=== PATIENT | male | born 1970 | race Caucasian/White ===

== ENCOUNTER 2018-09-20 12:53 | Emergency (ER) | payer OTHER, SELFPAY ==
[2018-09-20] VITALS (20 sets, daily range): BP systolic 110–138; BP diastolic 74–91; PULSE 58–84; RESP 13–23; TEMP 36.5; O2SAT 96–100
--- NOTE | 2018-09-20 13:08 | DI.RAD_ITS ---
SYMPTOMS/DIAGNOSIS: RIGHT KNEE PAIN S/P TWIST AND FALL OF SKID STEER; SYNCOPE, MILD CONCERN FOR ACUTE CORONARY SYNDROME RIGHT KNEE: Three views were obtained. No fracture is seen. PA AND LATERAL CHEST: The heart is normal in size. The lungs are clear. The mediastinal structures and pleura appear intact. CONCLUSION: Normal chest.
--- NOTE | 2018-09-20 13:12 | W.ED.GENAD ---
Discharge Plan Disposition Patient Disposition: HOME Condition: Improving Discharge Details Chief Complaint: Dizzy/Sync Clinical Impression: Syncope, Fall, Knee sprain, Creatinine elevation Primary Care Provider: Jr Agrawal ED Provider: Jeff Lamb Home Meds and New Rx's Prescriptions: No Action acetaminophen [Tylenol] 325 MG tablet 650 mg PO PRN RF: 0 lisinopril 20 mg Tablet 20 mg PO DAILY RF: 0 Discharge Instructions Instructions: Fall Prevention (ED), Knee Sprain (ED), Syncope (ED) Additional Instructions: Please follow-up with your primary care doctor this week to repeat electrolytes to check your renal function. Your creatinine which measures your kidney function was elevated today 1.31 is slightly higher than it has been in the past. This can be something chronic or something more benign like dehydration . please increase your clear fluid intake this week and see your doctor for repeat testing Please return to the emergency department immediately for shortness of breath chest pain repeat loss of consciousness or other concern. Please apply ice to your knee and begin working and mobilizing it as pain improves should the pain persist please follow-up with an orthopedic surgeon and your primary care physician. If at anytime the pain becomes excruciating or you can no longer bear weight please return to the emergency department for further evaluation Referrals: Jr Agrawal MD [Primary Care Provider] - Phuc Baker MD [ [facility] STAFF PHYSICIAN] - 1 week Medical Decision Making 48-year-old male status post fall followed by syncope with no evidence of head trauma knee x-ray chest x-ray unremarkable labs including troponin x1 unremarkable EKG x3 one prehospital with some questionable ST elevations versus artifact and 2 normal EKGs in the emergency no chest pain. Diagnosis 1 syncope suspect vasovagal syncope no evidence of cardiac minimal risk factors will discharge with early primary care follow-up and strict return for repeat symptoms of loss of consciousness or new chest pain or shortness of breath. Diagnosis to knee sprain versus strain versus less likely ligamentous tear x-ray and knee negative unable to bear weight provide Coy wrap for support PRN orthopedic follow-up Motrin and Tylenol for pain. Lab Data Lab results reviewed: Yes I reviewed the patient's lab results. Procedures ECG Data Attestation: I personally reviewed and interpreted this ECG (s) as follows: (EKG 1 and 2 sinus rhythm 60-67 normal axis no ectopy normal intervals no ST elevations no ST depressions normal T wave morphology) HPI 48-year-old male presents with right knee pain and loss of consciousness after falling off a skid steer about 3 feet into the bucket. Patient was working to change his lights on top of the deck slipped and twisted his leg between the wheel and the bucket and then fell into the pocket patient was able to extricate himself but then felt weak dizzy and passed out 2-3 times according to coworkers EMS responded noted patient to be pale and diaphoretic and mildly bradycardic in the 50s first EKG had some questionable elevations in leads 2/3/F V5 and V6. No chest pain no shortness of breath in the ED EKG without elevations. Patient complaining of mild to moderate left knee pains sharp ache without radiation pain but full range of motion. General Date/Time Provider Initiated Documentation: 09/20/18 13:01. Related Data Home Medications Medication Instructions Recorded Confirmed acetaminophen [Tylenol] 650 mg PO PRN tab-cap NS 04/23/13 09/20/18 lisinopril 20 mg PO DAILY 09/20/18 09/20/18 Allergies Allergy/AdvReac Type Severity Reaction Status Date / Time No Known Allergies Allergy Unverified 09/20/18 13:04 General Stated Complaint: Dizzy/Sync SHERLY: 2 Review of Systems Review of Systems All systems reviewed & are unremarkable except as noted in HPI and below PFSH Social History Smoking/Tobacco Use Status: Never Alcohol Intake: current Alcohol Intake frequency: a few times a week Substance use type: does not use Do you feel safe at home: Yes Do you feel safe in your relationship?: Yes Exam Narrative Exam Narrative: Pulse oximetry reviewed by me and is normal [] Constitutional: Pt is in no acute distress. he is well appearing. he oriented to person, place, and time. Eyes: conjunctivae are normal. Pupils are equal, round, and reactive to light. No scleral icterus. extraocular muscles are intact Ears/Nose/Mouth/Throat: mucus membranes are moist. Musculoskeletal: neck is supple. normal range of motion in all extremities. Patient's right knee with mild superficial abrasions mild tenderness over the distal patella mild pain over his medial meniscal line no crepitus no large effusion normal popliteal pulses normal distal neurovascular exam Cardiovascular: Normal rate and rhythm. No lower extremity edema regular rate and [] Respiratory: effort is normal . pt exhibits no stridor or respiratory distress. [Lungs clear to auscultation] GastrointestinaI: abdomen soft, +BS, nontender, -rebound, -guarding. Neurological: alert and oriented to person, place, and time. he has normal strength, no tremor. Skin: Skin is warm and dry. he is not diaphoretic. Distal perfusion in tact, warm extremities, cap refill ? 2 seconds. Hem/Lymph/Imm: No cervical LAD, no goiter, no conjunctival pallor Psych: normal mood and affect. behavior is normal Triage and nurse notes reviewed.[] Course Vital Signs Temperature 36.5 C 09/20/18 12:49 Pulse 68 09/20/18 12:49 Respiratory Rate 18 09/20/18 12:49 Blood Pressure 110/81 09/20/18 12:49 Pulse Oximetry 96 09/20/18 12:49 Temperature 36.5 C 09/20/18 12:49 Pulse 68 09/20/18 12:49 Respiratory Rate 18 09/20/18 12:49 Blood Pressure 110/81 09/20/18 12:49 Pulse Oximetry 96 09/20/18 12:49 Pain Level 9 09/20/18 12:49
[2018-09-20 13:45] LABS: Abs Immature Grans 0.03 k/cumm (0.0-0.09); Absolute Basophil Count 0.03 k/cumm (0.0-0.2); Absolute Eosinophil Count 0.08 k/cumm (0.0-0.7); Absolute Lymphocyte Count 3.21 k/cumm (1.2-3.4); Absolute Monocyte Count 0.71 k/cumm (0.11-0.7); Absolute Neutrophil Count 5.81 k/cumm (1.2-6.7); Basophils % 0.3; Eosinophils % 0.8; HCT 47.4 % (40.0-50.0); Immature Grans % 0.3; Lymphocytes % 32.5; Mean Corp. HGB Concentration 33.8 g/dL (32.0-36.0); Mean Corpuscular Hemoglobin 31.9 pg (27.0-33.0); Mean Corpuscular Volume 94.4 fL (80-95); Mean Platelet Volume 10.7 fL (8.0-11.0); Monocytes % 7.2; Neutrophils % 58.9; Platelet Count 315 x1000/uL (130-400); RBC 5.02 m/cumm (4.50-6.00); White Blood Cell Count 9.87 k/cumm (4.4-10.8)
[2018-09-20 14:07] LABS: ALT 64 U/L (12-78); AST 30 U/L (15-37); Albumin 3.9 g/dL (3.4-5.0); Alkaline Phosphatase 45 U/L (46-116); Anion Gap 7.9 mmol/L (3-11); BUN 19 mg/dL (7-18); Bilirubin, Total 0.7 mg/dL (0.2-1.0); CO2 30.1 mmol/L (21.0-32.0); CREATININE 1.31 mg/dL (0.70-1.30); Calcium 8.8 mg/dL (8.5-10.1); Chloride 101 mmol/L (98-107); Estimated GFR 58.16 (mL/min/1.73m2); Glucose 121 mg/dL (70-100); Potassium 3.5 mmol/L (3.5-5.1); Sodium 139 mmol/L (136-145); Total Protein 7.3 g/dL (6.4-8.2)
[2018-09-20 14:09] LABS: Troponin I < 0.02 ng/mL (0.00-0.06)
[2018-09-20] MEDS: Ibuprofen 800 MG TAB (14:24)
[2018-09-20] MEDS: Acetaminophen 500 MG TAB (14:25)
== END 2018-09-20 15:30 | disposition home or self-care (01) ==
PROVIDERS: Emergency Provider Emergency Medicine; PCP Internal Medicine
DX: R55 Syncope and collapse (principal); R94.4 Abnormal results of kidney function studies; S83.91XA Sprain of unspecified site of right knee, initial encounter; W31.9XXA Contact with unspecified machinery, initial encounter; W17.89XA Other fall from one level to another, initial encounter; Y99.0 Civilian activity done for income or pay; R00.1 Bradycardia, unspecified
CPT/HCPCS: 36415; 73562; 80053; 90471; 93005; 99285; 71046; 83735; 84484; 85025; 93010; E0114

== ENCOUNTER 2019-03-07 16:16 | Outpatient (REF) | payer OTHER, SELFPAY ==
[2019-03-07 21:26] LABS: Anion Gap 9.1 mmol/L (3-11); BUN 15 mg/dL (7-18); CO2 27.9 mmol/L (21.0-32.0); CREATININE 1.06 mg/dL (0.70-1.30); Calcium 9.2 mg/dL (8.5-10.1); Calculated LDL 140 mg/dL; Chloride 102 mmol/L (98-107); Cholesterol 223 mg/dL (50-200); Glucose 81 mg/dL (70-100); HDL Cholesterol 41 mg/dL (40-60); Sodium 139 mmol/L (136-145); Triglyceride 214 mg/dL (30-150)
== END 2019-03-07 16:36 ==
LOC: NCHCN 16:16
PROVIDERS: PCP Internal Medicine; Visit Provider Internal Medicine
DX: Z00.00 Encounter for general adult medical examination without abnormal findings (principal); I10 Essential (primary) hypertension; L98.9 Disorder of the skin and subcutaneous tissue, unspecified; E66.9 Obesity, unspecified
CPT/HCPCS: 80048; 80061

== ENCOUNTER 2019-06-06 16:46 | Outpatient (REF) | payer OTHER, SELFPAY ==
--- NOTE | 2019-06-06 15:45 | SKI_PTH ---
PATIENT: Mario Mcneal LOC: [facility]#:[id number] AGE/SX: 49/M ROOM: RE06/06/[address]: Jr Agrawal : 1970 BED: DIS: 06/06/2019 SPEC #: [id number] RECD: 06/09/19 12:11 STATUS: MICHEL TERAN #: [id number] STEFANIE: 06/06/19 15:[address]: Jr Agrawal DEPT: Surgical Specimen RECD BY: Marisa Mcgowan Tissues: 1 - SKIN BIOPSY(SHAVE/PUNCH) Procedures: SKIN LEVEL 4 Comments: [id number]
== END 2019-06-06 17:06 ==
LOC: NCHCN 16:46
PROVIDERS: PCP Internal Medicine; Visit Provider Internal Medicine
DX: D22.5 Melanocytic nevi of trunk (principal); B36.0 Pityriasis versicolor
CPT/HCPCS: 88305

== ENCOUNTER 2020-03-15 19:43 | Outpatient (REF) | payer OTHER, SELFPAY ==
[2020-03-15 22:19] LABS: Anion Gap 8.9 mmol/L (3-11); BUN 13 mg/dL (7-18); CO2 26.1 mmol/L (21.0-32.0); CREATININE 1.16 mg/dL (0.70-1.30); Calcium 8.8 mg/dL (8.5-10.1); Chloride 103 mmol/L (98-107); Glucose 117 mg/dL (74-106); Potassium 4.2 mmol/L (3.5-5.1); Sodium 138 mmol/L (136-145)
== END 2020-03-15 20:03 ==
LOC: NCHCN 19:43
PROVIDERS: PCP Internal Medicine; Visit Provider Internal Medicine
DX: I10 Essential (primary) hypertension (principal)
CPT/HCPCS: 80048

== ENCOUNTER 2021-05-04 09:27 | Outpatient (REF) | payer OTHER, SELFPAY ==
[2021-05-04 17:17] LABS: Anion Gap 5.8 mmol/L (3-11); BUN 15 mg/dL (7-18); CO2 30.2 mmol/L (21.0-32.0); CREATININE 1.1 mg/dL (0.70-1.30); Calcium 9.2 mg/dL (8.5-10.1); Chloride 105 mmol/L (98-107); Glucose 93 mg/dL (74-106); Potassium 4.6 mmol/L (3.5-5.1); Sodium 141 mmol/L (136-145)
[2021-05-06 10:30] LABS: HIV-1/2 Ag & Ab Screen Negative (Negative)
[2021-05-06 10:50] LABS: Hepatitis C Ab w Rflx HCV PCR Negative (Negative)
== END 2021-05-04 09:28 | disposition home or self-care (01) ==
LOC: NCHCN 09:27
PROVIDERS: PCP Internal Medicine; Visit Provider Family Medicine
DX: Z00.00 Encounter for general adult medical examination without abnormal findings (principal); I10 Essential (primary) hypertension; E78.5 Hyperlipidemia, unspecified; E66.9 Obesity, unspecified; Z11.4 Encounter for screening for human immunodeficiency virus [HIV]; Z11.59 Encounter for screening for other viral diseases
CPT/HCPCS: 80048; 86803; 87389

== ENCOUNTER 2021-07-29 21:15 | Outpatient (CLI) | payer OTHER, SELFPAY ==
--- NOTE | 2021-07-29 | DI.RAD_ITS ---
Exam(s) XR KNEE LT 3V AP,LAT,LOU EXAM: XR KNEE LT 3V AP,LAT,LOU CLINICAL HISTORY: LT KNEE PAIN, M25.562 TECHNIQUE: COMPARISON: CR XR knee RT 3V AP,lat,lou from 09/20/2018 FINDINGS: Three views were obtained. Cartilaginous joint spaces appear well maintained. No gross knee joint e ffusion seen on the lateral view. Minimal enthesophytes of the patella noted. No other bony abnorma lity seen. IMPRESSION: Negative examination of the knee. RADIATION DOSE DELIVERED: Total DLP
== END 2021-07-29 21:35 ==
PROVIDERS: PCP Internal Medicine; Visit Provider Family Medicine
DX: M25.562 Pain in left knee (principal)
CPT/HCPCS: 73562

== ENCOUNTER 2021-09-13 01:18 | Outpatient (CLI) | payer OTHER, SELFPAY ==
--- NOTE | 2021-09-13 14:23 | DI.MRI_ITS ---
Exam(s) MR LOWER JOINT LT WO EXAM: MR LOWER JOINT LT WO CLINICAL HISTORY: PAIN,internal derangement, m23.92 TECHNIQUE: Multiplanar multisequence MRI of the knee was performed. COMPARISON: CR XR KNEE LT 3V AP,LAT,LOU from 07/29/2021 FINDINGS: EFFUSION: There is a moderate-sized joint effusion. There is no Velasquez cyst in the medial popliteal f laila. There is some subcutaneous edema anterior to the patellar ligament but no organized fluid leonardo ection. MARROW:There is no evidence of fracture, prominent bone contusion, nor osteochondral defects.. There are no significant osseous lesions. PATELLOFEMORAL COMPARTMENT: The quadriceps tendon is intact. The patellar ligament is intact. There is no significant thinning of the retropatellar cartilage. No evidence of fissure nor signific ant chondral defect. No osteochondral defect at this level.There is no intraosseous signal to sugges t recent patellar dislocation. There are no patellar retinacular tears. CRUCIATE LIGAMENTS: The anterior cruciate ligament is intact.The posterior cruciate ligament is intac t. MEDIAL COMPARTMENT/MEDIAL MENISCUS: There is subtle tearing in the posterior horn of the medial menis cus at the level of the root. Also some oblique tearing in the outer 3rd. No bucket-handle configur ation. There is mild extrusion of the posterior horn. There are no obvious tears of the anterior ho rn. There mild degenerative changes in the cartilage over the medial condyle. No osteochondral defects. No marginal osteophyte off the inner aspect. Sys small lateral marginal osteophyte. MEDIAL COLLATERAL LIGAMENT: Intact. No meniscocapsular separation. LATERAL COMPARTMENT/LATERAL MENISCUS: There is no evidence of lateral meniscal tear.There are no owen dral defects, osteochondral defects, subarticular marrow edema, nor osteophytes evident. ILIOTIBIAL BAND: Intact LATERAL COLLATERAL LIGAMENT COMPLEX: The fibular collateral ligament is intact. The biceps femoris t endon is intact.Popliteus muscle and tendon are intact. IMPRESSION: 1. There are tears of the posterior horn of the medial meniscus, as described above. There is mild e xtrusion but no meniscocapsular separation. No bucket-handle configuration. No flipped meniscal fra gments. No evidence of MCL tear. 2. No tears of the lateral meniscus. 3. Minimal degenerative changes in the medial lateral compartments and no obvious chondromalacia narayan lla. No osteochondral defects. 4. Cruciate and collateral ligaments are intact. 5. There is mild subcutaneous edema anterior to the patellar ligament. No formed fluid collection. No abnormal signal in the patellar and quadriceps tendons. DATA REPOSITORY:
== END 2021-09-13 01:38 ==
PROVIDERS: PCP Internal Medicine; Visit Provider Student in an Organized Health Care Education/Training Program
DX: M25.562 Pain in left knee; M23.8X2 Other internal derangements of left knee; S83.242A Other tear of medial meniscus, current injury, left knee, initial encounter; M25.462 Effusion, left knee
CPT/HCPCS: 73721

== ENCOUNTER 2021-09-19 14:51 | Outpatient (CLI) | payer OTHER, SELFPAY ==
[2021-09-19 15:08] LABS: Source Nasal/Nares
[2021-09-19 19:26] LABS: COVID-19 PCR Negative (Negative)
== END 2021-09-19 14:52 | disposition home or self-care (01) ==
LOC: LBO 14:53
PROVIDERS: PCP Family Medicine; Referring Provider Family Medicine; Visit Provider Student in an Organized Health Care Education/Training Program
DX: Z20.822 Contact with and (suspected) exposure to COVID-19 (principal); Z01.818 Encounter for other preprocedural examination
CPT/HCPCS: 87635

== ENCOUNTER 2021-09-21 07:13 | Day surgery (SDC) | payer OTHER, SELFPAY ==
[2021-09-21] VITALS (8 sets, daily range): BP systolic 130–156; BP diastolic 86–108; PULSE 58–82; RESP 13–18; TEMP 36.4–37.1; O2SAT 95–99; BMI 40.9
[2021-09-21] MEDS: Celecoxib 200 MG CAP 400 MG PO (07:47)
[2021-09-21] MEDS: Acetaminophen 500 MG TAB 1000 MG PO (07:47)
[2021-09-21] MEDS: Lactated Ringers 1,000 ML 80 ML IV (08:05)
--- NOTE | 2021-09-21 08:15 | W.ANESPRE ---
General Info Date of Service Date Performed: 09/21/21 Height: 5 ft 6 in Weight: 115 kg Body Mass Index (BMI): 40.9 Surgical Procedure: Operation Date: 09/21/21 10:25 Proposed Procedure Side Surgeon p Knee Arthroscopy w/Partial Medial Menisectomy Left Phuc Baker MD Meds Allergies and Home Medications Allergies Allergy/AdvReac Type Severity Reaction Status Date / Time No Known Allergies Allergy Verified 09/21/21 07:26 Home Medication Medication Instructions Recorded Tylenol 325 mg tablet 650 mg PO PRN tab-cap NS 04/23/13 (acetaminophen) lisinopril 20 mg tablet 20 mg PO DAILY 09/20/18 Current Visit Medications: Current Medications Generic Name Dose Route Start Last Admin Trade Name Freq PRN Reason Stop Dose Admin Acetaminophen 1,000 mg 09/21/21 06:00 09/21/21 07:47 Acetaminophen 500 Mg Tab PO 09/21/21 16:00 1,000 mg PREOP MANINDER Administration Celecoxib 400 mg 09/21/21 06:00 09/21/21 07:47 Celecoxib 200 Mg Cap PO 09/21/21 16:00 400 mg PREOP MANINDER Administration Ringer's Solution 1,000 mls @ 80 mls/hr 09/21/21 06:00 09/21/21 08:05 IV 10/20/21 23:59 80 mls/hr INFUSION MANINDER Administration Cefazolin Sodium/Dextrose 2 gm in 50 mls @ 100 mls/hr 09/21/21 06:00 Ancef Duplex IVPB 10/20/21 23:59 PREOP MANINDER IV Miscellaneous Supplies 1 each 09/21/21 06:00 Iv Access IV 10/20/21 23:59 DIRECTED MANINDER Sodium Chloride 0 ml 09/21/21 06:00 Normal Saline Flush 10 Ml Syr IV 10/20/21 23:59 PRN PRN Sodium Chloride 0 ml 09/21/21 06:00 Normal Saline 10 Ml Vial IJ 10/20/21 23:59 DIRECTED PRN Sterile Water 0 ml 09/21/21 06:00 Water,Injection,Sterile 10 Ml Vial IJ 10/20/21 23:59 DIRECTED PRN PFSH Active Problems Active Problems: Problem Status Onset Code Tear of medial meniscus of left knee S83.242A Obesity E66.9 Hypertension I10 Dyslipidemia E78.5 Contusion of right knee S80.01XA Medical History Medical History Comments:: no prior surgical history Tobacco Smoking/Tobacco Use Status: Never Alcohol Alcohol Intake: current Alcohol intake frequency: a few times a week Substance Use Substance use: Never Substance use type: does not use Vital Signs and Lab Results Vital Signs Most Recent Vital Signs in EMR: Most Recent Vital Signs Temp Pulse Resp BP Pulse Ox 37.1 C 58 L 16 156/95 H 99 09/21/21 07:29 09/21/21 07:29 09/21/21 07:29 09/21/21 07:29 09/21/21 07:29 Lab Results Blood Type / Crossmatch: No Data to Display Complete Blood Count: No Data to Display Complete Metabolic Panel: No Data to Display Liver Function Panel: No Data to Display Coagulation Panel: No Data to Display Cardiac Panel: No Data to Display Arterial Blood Gas: No Data to Display Venous Blood Gas: No Data to Display Pancreas Panel: No Data to Display Thyroid Panel: No Data to Display Infectious Disease: Coronavirus (COVID-19)(PCR) Negative (Negative) 09/19/21 14:57 09/19/21 Coronavirus 2019 Source Nasal/Nares 09/19/21 14:57 09/19/21 Blood Cultures: No Data to Display Toxicology Panel: No Data to Display Anesthesia Assessment and Plan Anesthesia History Personal History: No History of General Anesthesia Family History: No Family History of Anesthesia Complications Exercise Tolerance Exercise Tolerance: Metabolic Equivalents>4 Pertinent Negatives Pertinent Negatives: No Symptoms of GERD, No Major Cardiovascular Symptoms or Complaints, No Major Pulmonary Symptoms or Complaints and No History of CVA/TIA Cardiac & Pulmonary Exam Cardiac Exam: Normal S1/S2 Heart Sounds Pulmonary Exam: Clear Bilateral Breath Sounds Implantable Cardiac Device Does patient have a Pacemaker or an ICD?: No Airway Exam Known Difficult Airway: No Mallampati Class: 2 Mouth Opening: Normal (> 3cm) Thyromental Distance: Greater than 3 cm Neck Range of Motion: Full ROM Neck Circumference: Normal Teeth Condition: Normal Dentition ASA Classification ASA Score: ASA 2 Emergency Case?: No NPO Status NPO Status: NPO Clears >2 hours, Solids >8 hours Anesthesia Plan Resuscitation Status: Full Code Anesthesia Technique: General Anesthesia Airway Planned: Endotracheal Tube Monitors Used: Standard Monitors
[2021-09-21] MEDS: ceFAZolin 2 GM/50 ML BAG IVPB (09:28)
[2021-09-21] MEDS: Bupivacaine 0.5% Pres-Free 30 ML VIAL (09:45)
--- NOTE | 2021-09-21 10:14 | PDOC.DSDIS_ITS ---
Discharge Plan Disposition Patient Disposition: HOME Condition: Good Discharge Details Reason For Visit: L knee arthroscopy Attending Provider: Phuc Baker Primary Care Provider: Junaid Whitney Home Meds and New Rx's Prescriptions: New hydrocodone-acetaminophen 5-325 mg tablet 1 tab PO Q6H PRN (Reason: pain) Qty: 10 0RF acetaminophen 500 mg tablet 1,000 mg PO TID Qty: 90 0RF ibuprofen 600 mg tablet 600 mg PO TID PRN (Reason: pain) Qty: 90 0RF Continued lisinopril 20 mg Tablet 20 mg PO DAILY 0RF Discontinued acetaminophen [Tylenol] 325 MG tablet 650 mg PO PRN 0RF Discharge Instructions Stand Alone Forms: [facility] Knee Arthroscopy Referrals: Phuc Baker MD [ [facility] STAFF PHYSICIAN] - Equipment/Supplies: Partial Weight Bearing Crutches Activity:: Activity as Tolerated Remove Dressings/Wound Care:: 48 hours Shower/Bathe:: 48 hours Diet:: As Tolerated Discharge Orders Discharge Orders: Discharge Order (Routine); Ordered 09/21/21 Ordered By: Cecilio Prater DS: Diagnosis Discharge Diagnosis (1) Tear of medial meniscus of left knee: Status: Acute
--- NOTE | 2021-09-21 10:53 | W.ANESPOSTOP ---
Postoperative Evaluation Date, Time and Location Date Performed: 09/21/21 Time Performed: 10:54 Patient Location: Day Surgery Unit Vital Signs Most Recent Imported Vital Signs: Most Recent Vital Signs Temp Pulse Resp BP Pulse Ox 36.7 C 71 14 139/90 95 09/21/21 10:43 09/21/21 10:43 09/21/21 10:43 09/21/21 10:43 09/21/21 10:43 Pain Score Most Recent Pain Score: Most Recent Pain Score Pain Level 0 09/21/21 10:43 Assessment Mental Status: Awake (Alert & Oriented to Patient Baseline) Airway and Respiratory Function: Patent airway with normal (patient baseline) respiratory exam Cardiovascular Function: Hemodynamically Stable Hydration Status: Adequately Hydrated Nausea & Vomiting: No Nausea or Vomiting Pain: Pt. Denies Any Pain Peripheral Nerve Block: Patient did not receive a nerve block
[2021-09-21] MEDS: HYDROcodone 5/Acetaminophen 325 TAB PO (11:15)
--- NOTE | 2021-09-21 20:59 | W.PM.OP ---
Date of service: 09/21/21 Time of Service: 11:00 Operative Note Operative Note DATE OF PROCEDURE: 09/21/21 PRE-OP DIAGNOSIS: Left Knee Medial Meniscus Tear POST-OP DIAGNOSIS: same (Left Knee Medial Meniscus Root Tear) SURGEON: Phuc Baker ANESTHESIA TYPE: General LMA/ETT Refer to Anesthesia Record ESTIMATED BLOOD LOSS: 0 PATHOLOGY: none sent COMPLICATIONS: None Patient was transported to: PACU Patient's condition: stable Indications: I have seen Kashif in clinic for symptoms of a meniscus tear. This was confirmed based on MRI and exam findings. Nonoperative measures were exhausted but disability and pain persisted. I discussed knee arthroscopy with meniscal intervention with the patient. I reviewed the risks of the procedure to include, but not limited to, bleeding, infection, pain, stiffness, damage to nerves or vessels, recurrence, blood clot. Despite these risks, the patient elected to proceed. Findings: A diagnostic arthroscopy was performed with the following findings: Suprapatellar Pouch: No significant inflammation, No loose bodies Medial Compartment: Primarily radial tear of the posterior meniscus immediately adjacent to the posterior root (functional root avulstion), Disconnected meniscal root, No significant chondromalacia or signs of arthritis, No loose bodies Notch: ACL and PCL were intact Lateral Compartment: No meniscal tear, Intact meniscal root, No significant chondromalacia or signs of arthritis, No loose bodies Patellofemoral Compartment: Grade i chondromalacia, No apparent patellar maltracking Procedure Description: Kashif was greeted in the preoperative holding area where the correct side was identified and marked. The consent was reviewed with the patient and signed. The history and physical was updated. All questions were answered. He was taken back to the operating room. The patient was placed into the supine position on the operating room table. All bony prominences were well padded. Prophylactic antibiotics in the form of Cefazolin were administered. The left leg was then prepped with Chloraprep and draped in a standard fashion with stockinette and extremity drape. A timeout to confirm correct identity, side and site, procedure, allergies, anesthesia, and medical concerns was performed. The leg was placed into a pneumatic leg chen, [id number]. A standard lateral portal was made at the lateral border of the patella tendon in line with the inferior pole of the patella, soft spot. The skin and deep tissue was incised sharply and the blunt trochar was inserted atraumatically. A diagnostic arthroscopy was performed and the findings are listed above. The suprapatellar pouch had no significant inflammatory change. The patellofemoral articulation showed Grade I chondromalacia as well as good tracking. The lateral gutter had no loose bodies and the medial gutter had no loose bodies. The knee was brought into some valgus stress in extension to open the medial compartment. A medial portal was made, localized by a spinal needle. The portal was created with an #11 blade through skin and capsule under direct visualization avoiding any meniscal injury. A probe was then inserted into the medial compartment. The medial compartment was fully inspected. The chondral surface of the tibia showed no significant chondromalacia and the surface of the femur showed no significant chondromalacia. The medial meniscus had a primarily radial tear at the posterior root insertion, just medial to this. This was much dry cleaner helper and closer to the root than I had anticipated with the MRI. I then placed the scope into the notch and analyzed the root segment which was quite short. The meniscus was able to be easily displaced but then also reduced. The tissue quality appeared healthy without significant degeneration. I debrided the edges of the tear to confirm a simple radial tear without secondary tear lines. The tissue was of good quality. At this point, I made the decision to hold on proceeding with any root repair. Given the excellent cartilage quality, tissue quality, and radial tear at the posterior root, a root repair would be the best next step but this would require significant deviation of our agreed-upon rehabilitation plan and would require instrumentation I do not have readily available. Therefore, I did not complete any repair of the meniscus but simply clean the edges still leaving plenty meniscus which was easily reducible back down into the posterior root insertion. The notch was then inspected which showed an intact ACL and an intact PCL. The leg was then brought into a figure of 4 position. The lateral compartment was fully inspected with the arthroscope and a probe. The chondral surface of the lateral femur showed no significant chondromalacia. The chondral surface of the lateral tibia showed no significant chondromalacia. The lateral meniscus had no meniscal tear. The arthroscope was brought back into the suprapatellar pouch and the leg was in full extension. The knee was thoroughly irrigated with the arthroscopic fluid on high flow and pressure. Inflow was stopped and excess fluid was removed. The wounds were closed with 4-0 Nylon. They were dressed with Xeroform, 4x4 gauze, ABD pad, Kerlix and an VIJAY wrap. A cryo-cuff was applied. The patient tolerated the procedure well and was returned to the Same Day Surgery area in a stable condition suffering no known complication. Immediately following the procedure I called his to discuss the findings and the likely need for secondary procedures or leaving it as is understand this would lead to more progressive arthritic decline within the knee. Once he is awake from anesthesia I also discussed the case with him.
== END 2021-09-21 12:20 | disposition home or self-care (01) ==
PROVIDERS: PCP Family Medicine; Visit Provider Student in an Organized Health Care Education/Training Program
PROC: (CPT 29870; principal; 2021-09-21 10:15)
DX: S83.242A Other tear of medial meniscus, current injury, left knee, initial encounter (principal); X58.XXXA Exposure to other specified factors, initial encounter
CPT/HCPCS: 29881; J0690; J1100; J1885; J2250; J2405

== ENCOUNTER 2021-11-16 02:34 | Outpatient (CLI) | payer OTHER, SELFPAY ==
[2021-11-16 12:33] LABS: Source Nasal/Nares
[2021-11-16 17:37] LABS: COVID-19 PCR Negative (Negative)
== END 2021-11-16 02:35 | disposition home or self-care (01) ==
PROVIDERS: PCP Family Medicine; Visit Provider Student in an Organized Health Care Education/Training Program
DX: Z20.822 Contact with and (suspected) exposure to COVID-19 (principal); Z01.818 Encounter for other preprocedural examination
CPT/HCPCS: 87635

== ENCOUNTER 2021-11-18 07:29 | Day surgery (SDC) | payer OTHER, SELFPAY ==
[2021-11-18] VITALS (10 sets, daily range): BP systolic 98–146; BP diastolic 67–95; PULSE 49–77; RESP 12–19; TEMP 36.1–36.4; O2SAT 90–98; BMI 40.8
--- NOTE | 2021-11-18 06:17 | ANES.PREOP_ITS ---
General Info Date of Service Date Performed: 11/18/21 Height: 5 ft 6 in Weight: 114.759 kg Body Mass Index (BMI): 40.8 Surgical Procedure: Operation Date: 11/18/21 09:10 Proposed Procedure Side Surgeon p Knee Arthroscopy w/Any Indicated Meniscal,Chondral,Synovial surgery/Possible Medial Meniscus Repair/Root Repair w/Intercondylar Notch Microfracture Left Quan kaci Villarreal MD Meds Allergies and Home Medications Allergies Allergy/AdvReac Type Severity Reaction Status Date / Time No Known Allergies Allergy Verified 11/17/21 06:30 Home Medication Medication Instructions Recorded lisinopril 20 mg tablet 20 mg PO DAILY 09/20/18 acetaminophen 500 mg tablet 1,000 mg PO TID #90 tabs 09/21/21 Current Visit Medications: Current Medications Generic Name Dose Route Start Last Admin Trade Name Freq PRN Reason Stop Dose Admin Ringer's Solution 1,000 mls @ 30 mls/hr 11/18/21 06:00 IV 12/17/21 23:59 INFUSION MANINDER Cefazolin Sodium/Dextrose 2 gm in 50 mls @ 100 mls/hr 11/18/21 06:00 Ancef Duplex IVPB 11/18/21 16:00 PREOP MANINDER IV Miscellaneous Supplies 1 each 11/18/21 06:00 Iv Access IV 12/17/21 23:59 DIRECTED MANINDER Sodium Chloride 0 ml 11/18/21 06:00 Normal Saline Flush 10 Ml Syr IV 12/17/21 23:59 PRN PRN Sodium Chloride 0 ml 11/18/21 06:00 Normal Saline 10 Ml Vial IJ 12/17/21 23:59 DIRECTED PRN Sterile Water 0 ml 11/18/21 06:00 Water,Injection,Sterile 10 Ml Vial IJ 12/17/21 23:59 DIRECTED PRN PFSH Active Problems Active Problems: Problem Status Onset Code Tear of medial meniscus of left knee S83.242A Obesity E66.9 Hypertension I10 Dyslipidemia E78.5 Contusion of right knee S80.01XA Medical History Medical History Comments:: no prior surgical history Tobacco Smoking/Tobacco Use Status: Never Alcohol Alcohol Intake: current Alcohol intake frequency: a few times a week Substance Use Substance use: Never Substance use type: does not use Vital Signs and Lab Results Lab Results Blood Type / Crossmatch: No Data to Display Complete Blood Count: No Data to Display Complete Metabolic Panel: No Data to Display Liver Function Panel: No Data to Display Coagulation Panel: No Data to Display Cardiac Panel: No Data to Display Arterial Blood Gas: No Data to Display Venous Blood Gas: No Data to Display Pancreas Panel: No Data to Display Thyroid Panel: No Data to Display Infectious Disease: Coronavirus (COVID-19)(PCR) Negative (Negative) 11/16/21 07:51 Coronavirus 2019 Source Nasal/Nares 11/16/21 07:51 Blood Cultures: No Data to Display Toxicology Panel: No Data to Display Anesthesia Assessment and Plan Anesthesia History Personal History: No History of Anesthesia Complications Family History: No Family History of Anesthesia Complications Exercise Tolerance Exercise Tolerance: Metabolic Equivalents>4 Pertinent Negatives Pertinent Negatives: No Symptoms of GERD, No Major Cardiovascular Symptoms or Complaints, No Major Pulmonary Symptoms or Complaints and No History of CVA/TIA Cardiac & Pulmonary Exam Cardiac Exam: Normal S1/S2 Heart Sounds Pulmonary Exam: Clear Bilateral Breath Sounds Implantable Cardiac Device Does patient have a Pacemaker or an ICD?: No Airway Exam Known Difficult Airway: No Mallampati Class: 2 Mouth Opening: Normal (> 3cm) Thyromental Distance: Greater than 3 cm Neck Range of Motion: Full ROM Neck Circumference: Normal Teeth Condition: Normal Dentition ASA Classification ASA Score: ASA 3 (BMI>=40) Emergency Case?: No NPO Status NPO Status: NPO Clears >2 hours, Solids >8 hours Anesthesia Plan Resuscitation Status: Full Code Anesthesia Technique: General Anesthesia Airway Planned: LMA Pain Management: Surgeon and patient request nerve block Monitors Used: Standard Monitors Preoperative Comments:: 51 yo male with meniscal root tear for knee arthroscopy. Sig PMHx: HTN (lisinopril), Previous Anes: LMA 5 no issues.
--- NOTE | 2021-11-18 07:35 | ROE_ITS ---
Operative Note Operative Note DATE OF PROCEDURE: 11/18/21 POST-OP DIAGNOSIS: same PROCEDURE: Left knee Medial meniscus root repair, CPT # 65297 1. Partial medial meniscectomy, CPT #29041 2. Greater than 2 compartment synovectomy, CPT #81303: [...] 3. Chondroplasty, CPT #66143: [...] PERSONNEL INTERVIEWER: Lynda Maldonado Refer to Anesthesia Record PATHOLOGY: none sent TOURNIQUET TIME: 0 Patient was transported to: PACU Patient's condition: stable Implants: Left knee Medial meniscus root repair, CPT # 43382 1. Partial medial meniscectomy, CPT #09328 2. Greater than 2 compartment synovectomy, CPT #75629: [...] 3. Chondroplasty, CPT #48587: [...]
--- NOTE | 2021-11-18 07:35 | W.PM.OP ---
Operative Note Operative Note DATE OF PROCEDURE: 11/18/21 POST-OP DIAGNOSIS: same PROCEDURE: Left knee Medial meniscus root repair, CPT # 33459 1. Partial medial meniscectomy, CPT #45812 2. Greater than 2 compartment synovectomy, CPT #45565: [...] 3. Chondroplasty, CPT #58305: [...] MEDICAL SALES CONSULTANT: Lynda Maldonado Refer to Anesthesia Record PATHOLOGY: none sent TOURNIQUET TIME: 0 Patient was transported to: PACU Patient's condition: stable Implants: Left knee Medial meniscus root repair, CPT # 31312 1. Partial medial meniscectomy, CPT #98615 2. Greater than 2 compartment synovectomy, CPT #23952: [...] 3. Chondroplasty, CPT #79359: [...]
[2021-11-18] MEDS: Lactated Ringers 1,000 ML 30 ML IV (08:30)
[2021-11-18] MEDS: ceFAZolin 2 GM/50 ML BAG IVPB (10:11)
[2021-11-18] MEDS: Bupivacaine 0.25% Pres-Free 30 ML VIAL (10:34)
[2021-11-18] MEDS: Lidocaine 1.5 % Pres-Free W/EPI 1/200,000 30 ML VIAL (10:34)
[2021-11-18] MEDS: EPINEPHrine 30 MG/30 ML VIAL (11:18)
--- NOTE | 2021-11-18 12:33 | PDOC.DSDIS_ITS ---
Discharge Plan Disposition Patient Disposition: HOME Condition: Stable Discharge Details Reason For Visit: Left knee surgery Attending Provider: Wilberto Villarreal Primary Care Provider: Junaid Whitney Home Meds and New Rx's Prescriptions: New naproxen 250 mg tablet 250 - 500 mg PO BID PRNQty: 40 0RF Rx Instructions: take with a meal aspirin 81 mg tablet,delayed release (DR/EC) 81 mg PO DAILY 14 Days Qty: 14 0RF oxycodone 5 mg tablet 5 - 10 mg PO Q4H MDD 30 mg PRN (Reason: moderate to severe pain) Qty: 18 0RF Continued lisinopril 20 mg Tablet 20 mg PO DAILY acetaminophen 500 mg tablet 1,000 mg PO TID Qty: 90 0RF Discontinued ibuprofen 600 mg tablet 600 mg PO TID PRN (Reason: pain) Qty: 90 0RF Discharge Instructions Additional Instructions: Surgery: Left knee arthroscopy with medial meniscus root repair, partial lateral meniscectomy, abrasion arthroplasty, and synovectomy Activity: Toe-touch weightbearing with crutches for 6 weeks followed by protected weightbearing with crutches for another 2 weeks. Avoid flexion past 90 degrees for 8 weeks. After 8 weeks, advance to full weightbearing as tolerated and wean from crutches. Avoid weighted deep flexion for 12 weeks. A physical therapy prescription will be sent electronically to start in 2 to 3 weeks. Prescriptions: Aspirin 81 mg take 1 daily to prevent a blood clot for 14 days Naproxen 250 mg take 1-2 every 12 hours with a meal as needed for moderate pain Oxycodone 5 mg take 1-2 every 4-6 hours as needed for severe pain You may use [id number] Tylenol (acetaminophen) as needed for mild pain. These pain medications may be taken all at once or in different combinations as needed. Also, recommend Colace (docusate) as a stool softener as surgery and pain m edicine cause constipation. You may try [id number] diphenhydramine (Benadryl) 25-50 mg nightly as a sleep aid Dressings: Leave dressing in place for 3 days. May then remove and leave open to air or cover incisions with Band-Aids. May shower after 5 days. Follow-up: 10-[address] Villarreal Let us know right away if you develop any redness, drainage, fevers, chest pain, or trouble breathing. Do not drink alcohol or drive for at least 24 hours after anesthesia. Please call the office during business hours with any questions or concerns. Discharge Orders Discharge Orders: Discharge Order (Routine); Ordered 11/18/21 Ordered By: Wilberto Villarreal DS: Diagnosis Discharge Diagnosis (1) Tear of medial meniscus of left knee: Status: Acute
[2021-11-18] MEDS: Ketorolac 15 MG/ML VIAL IVP (12:45)
--- NOTE | 2021-11-18 12:50 | ROE_ITS ---
Operative Note Operative Note DATE OF PROCEDURE: 11/18/21 PRE-OP DIAGNOSIS: Left knee 1. Medial meniscus tear POST-OP DIAGNOSIS: same Left knee 1. Medial meniscus root tear 2. Lateral meniscus posterior horn tear 3. Medial plica 4. Suprapatellar adhesions PROCEDURE: Left knee 1. Medial meniscus root repair, CPT # 02278 2. Partial lateral meniscectomy, CPT #05352 3. Abrasion type microfracture, CPT #68753: Intercondylar wall medial femoral condyle 4. Greater than 2 compartment synovectomy, CPT #41339: Intercondylar synovitis, patellofemoral adhesions, and medial gutter plica SURGEON: Wilberto Villarreal [employer] DISTRIBUTOR: Lynda Maldonado ANESTHESIA TYPE: Local By Surgeon and General LMA/ETT Refer to Anesthesia Record ESTIMATED BLOOD LOSS: 10 PATHOLOGY: none sent TOURNIQUET TIME: 0 COMPLICATIONS: None Patient was transported to: PACU Patient's condition: stable Indications: Please see complete medical record for details. Findings: Exam under anesthesia: Full range of motion, no instability. Arthroscopic findings: Moderate suprapatellar capsular adhesions. Large medial gutter plical band causing chondromalacia on the medial femoral condyle. Moderate intercondylar synovitis. High?grade posterior horn radial tear adjacent to the root. Mild medial compartment narrowing and chondromalacia, but otherwise healthy articular cartilage and meniscal tissue. Intact ACL PCL. Moderate fraying of the posterior horn lateral meniscus near the root with intact stable root and remainder lateral meniscus lateral compartment intact. Procedure Description: In the operating room, genral anesthesia was induced. The patient was positioned supine on the operating room table. All bony prominences were well- padded. Preoperative antibiotics were administered. The knee was prepped and draped in the usual sterile fashion. The correct patient, procedure, and side of the procedure were all verified prior to incision. Exam under anesthesia was performed. 20 cc of a bupivacaine and epinephrine mixture containing epinephrinewas infiltrated about the planned anteromedial, anterolateral knee arthroscopy portals and pretibial incision. The portals were established separate from the pre-existing vertical portals lower and more centrally with a horizontal skin incision to allow better trajectory relative that the tibial plateau and into the intercondylar area. The portals were established and a complete diagnostic arthroscopy was performed with relevant findings detailed above. The mechanical shaver was used to remove pathologic synovium from the intercondylar area. The meniscal biter was used to resect the large medial gutter plica followed by the shaver to remove the pieces and smooth to the capsular margin. The meniscal biter was also used to resect multiple suprapatellar synovial adhesions followed by the shaver heals well to debride capsular synovitis to a stable margin. The posterior horn medial meniscus demonstrated a root?equivalent type tear as expected. Healthy tissues on the margin did not require much debridement but was rasped to freshen tissue edges. The knee was positioned in valgus with semi-? extension versus 90 degrees bent over the side of the table, which had the best access to the root area. The curved shaver followed by the larger shaver and then used to perform a reverse notchplasty exposing subchondral bleeding bone on the intercondylar wall of the medial femoral condyle as bone marrow augmentation for isolated meniscus repair healing. The knee scorpion was used to shuttle three 0.9 mm suture tape FiberLink's around the tear with secure tissue hold. The root drill guide was then positioned over the posterior margin of the medial plateau and the offset set targeting posteriorly where the root tear was located and the drill sleeve used to localize and create a small pretibial incision. The flip cutter was drilled to the appropriate location and drill handle and guide removed. The meniscus repair sutures were held out of the way and the flip cutter was deployed to 7 mm and used to abrade the root area and create an approximately 5 mm depth socket. The flip cutter was then removed and fiber stick used to shuttle these repair sutures out the tunnel. With moderate tension there was excellent reduction of the tear area. A 2?hole 3.5 mm cortical button was then loaded with the repair sutures and then delivered to the cortex with moderate tension knots tied securing the repair. The probe was used to inspect the repair, which had adequate fixation strength but was felt to be lacking slightly in terms of tension. Considering the patient's obesity, decision was made to proceed with SwiveLock backup fixation. The pretibial incision was extended slightly distally. The cortex was exposed, drilled, punched, and then tapped. The repair sutures were then loaded on a 4.75 mm SwiveLock anchor thast added additional reduction and fixation strength to the meniscal root repair. Care was taken to ensure the anchor was flush with the pretibial bone so as not to be prominent. Suture ends were cut. Arthroscopic fluid was turned off and there was excellent bleeding from the abrasion?arthroplasty type microfracture over the meniscal root area. The knee was positioned in the [id number] position. There was a moderate amount of fraying white zone tissue at the posterior horn of the lateral meniscus near the root. The mechanical shaver was used to debride all torn tissue to a stable margin. Care was taken to preserve as much meniscus as possible. The remainder of the lateral meniscus was probed and found to have a stable margin, stable root, no other tears. The knee was copiously irrigated with arthroscopic fluid until there was a clear effluent before being drained of all fluid. The pretibial incision subcutaneous tissues were closed using 2-0 Monocryl. The anteromedial and anterolateral portals and pretibial incision was then closed using 3-0 Monocryl in a buried interrupted fashion. Mastisol, Steri-Strips, and 4 x 4 gauze were applied over the incisions. The knee was then wrapped gently with an VIJAY comressive bandage. The patient awoke from anesthesia without complication and was transferred to the recovery room in a stable condition.
[2021-11-18] MEDS: fentaNYL 100 MCG/2 ML VIAL IVP ×2 (13:00→13:10)
--- NOTE | 2021-11-18 13:49 | W.ANESPOSTOP ---
Postoperative Evaluation Date, Time and Location Date Performed: 11/18/21 Time Performed: 13:49 Patient Location: PACU Vital Signs Most Recent Imported Vital Signs: Most Recent Vital Signs Temp Pulse Resp BP Pulse Ox 36.2 C L 54 L 13 126/82 95 11/18/21 13:35 11/18/21 13:35 11/18/21 13:35 11/18/21 13:35 11/18/21 13:35 Pain Score Most Recent Pain Score: Most Recent Pain Score Pain Level 4 11/18/21 13:35 Assessment Mental Status: Awake (Alert & Oriented to Patient Baseline) Airway and Respiratory Function: Patent airway with normal (patient baseline) respiratory exam Cardiovascular Function: Hemodynamically Stable Hydration Status: Adequately Hydrated Nausea & Vomiting: No Nausea or Vomiting Pain: Pain is tolerable per patient Peripheral Nerve Block: Patient did not receive a nerve block
[2021-11-18] MEDS: Naproxen 500 MG TAB PO (14:53)
== END 2021-11-18 15:30 | disposition home or self-care (01) ==
PROVIDERS: PCP Family Medicine; Visit Provider Student in an Organized Health Care Education/Training Program
PROC: (CPT 29870; principal; 2021-11-18 09:00)
DX: M23.252 Derangement of posterior horn of lateral meniscus due to old tear or injury, left knee (principal); M23.222 Derangement of posterior horn of medial meniscus due to old tear or injury, left knee; M67.52 Plica syndrome, left knee
CPT/HCPCS: 29882; 29879; 29876; 29881; J0690; J1100; J1885; J2250; J2405; J2704; J3010

== ENCOUNTER 2022-04-19 09:20 | Outpatient (REF) | payer OTHER, SELFPAY ==
[2022-04-19 14:45] LABS: Anion Gap 5.5 mmol/L (3-11); BUN 16 mg/dL (7-18); CO2 33.5 mmol/L (21.0-32.0); CREATININE 1.2 mg/dL (0.70-1.30); Calculated LDL 147 mg/dL (<100); Chloride 101 mmol/L (98-107); Cholesterol 244 mg/dL (<200); Estimated GFR 72.31 (mL/min/1.73m2); Glucose 99 mg/dL (74-106); HDL Cholesterol 47 mg/dL (40-60); Sodium 140 mmol/L (136-145); Triglyceride 252 mg/dL (<150)
== END 2022-04-19 09:21 | disposition home or self-care (01) ==
LOC: NCHCN 09:20
PROVIDERS: PCP Family Medicine; Visit Provider Family Medicine
DX: I10 Essential (primary) hypertension (principal); E66.9 Obesity, unspecified; E78.5 Hyperlipidemia, unspecified
CPT/HCPCS: 80048; 80061

== ENCOUNTER 2022-05-15 07:36 | Emergency (ER) | payer OTHER, SELFPAY ==
[2022-05-15 07:41] VITALS: BP 158/103; PULSE 87; RESP 16; TEMP 36.5; O2SAT 97
--- NOTE | 2022-05-15 07:51 | ED.GENADUL_ITS ---
Discharge Plan Disposition Patient Disposition: Home Condition: Stable Discharge Details Clinical Impression: Urinary hesitancy Primary Care Provider: Junaid Whitney ED Provider: Staci Mccoy Home Meds and New Rx's Prescriptions: New tamsulosin [Flomax] 0.4 mg capsule 0.4 mg PO DAILY Qty: 30 0RF Continued lisinopril 20 mg Tablet 20 mg PO DAILY acetaminophen 500 mg tablet 1,000 mg PO TID Qty: 90 0RF Discharge Instructions Instructions: Enlarged Prostate (BPH) (ED), Dysuria (ED), Urinary Urgency and Frequency (DC) Additional Instructions: Your blood tests and imaging today are reassuring and show no evidence of acute concerning or significant findings. Your urine today showed blood but no obvious evidence of infection. It is suspected that your symptoms are due to an enlarged prostate. Take the Flomax once daily as directed. You have been placed on urologist Dr. Streeter's list for reevaluation. Return immediately to the emergency department if you develop any worsening or new concerning symptoms such as fever, persistent vomiting, worsening pain or any other concerns. Referrals: Cedrick Streeter MD [ [facility]AFF PHYSICIAN] - Discharge Data Discharge Physician: Staci Mccoy Medical Decision Making 0745 -- 52yo M who presents to the ED w/ a c/o dysuria, urinary urgency, hesitancy, and itching with urination for the past few days. BP moderately hypertensive. Remainder of vitals within normal limits. Pt appears comfortable and nontoxic. Abdomen soft and nontender. No CVAT. Normal exam. Suspect BPH. Consider UTI. History and presentation does not appear c/w kidney stone. Do not see an indication for blood testing or imaging at this time. Will obtain a UA. Will attempt to contact Dr. Streeter but if no evidence of infection or significant blood, will start on flomax and refer to urology and pcp for follow up. 0830 --urinalysis noted large blood but with 3-5 WBCs, negative leukocyte esterase, negative bacteria and negative nitrite. Will obtain screening labs and CT renal colic to rule out mass or stone. 1020 --CT negative for acute findings. Suspect BPH as he has urinary hesistancy and dribbling and difficulty starting flow. Patient presentation does not appear consistent with UTI or STI. We will give patient a dose of Flomax here and sent prescription electronically to his pharmacy. Patient was placed on Dr. Streeter's list for follow-up. Advised to follow up with the primary care doctor for re-evaluation. Usual and customary return precautions given prior to discharge. Medical Records Medical records reviewed: Yes I reviewed the patient's medical records. Imaging Data Radiologic Study: Radiologist's impression: CT Abdomen And Pelvis Without Contrast Exam date and time: 05/15/2022 9:05 AM Age: 52 years old Clinical indication: Patient HX: Dysuria, hematuria, R/O mass, stone TECHNIQUE: Imaging protocol: Computed tomography of the abdomen and pelvis without contrast. COMPARISON: MR LOWER JOINT LT WO 09/13/2021 1:48 PM FINDINGS: Liver: Diffuse hypodensity of the liver represents diffuse fatty infiltration. Gallbladder and bile ducts: Normal. No calcified stones. No ductal dilation. Pancreas: Normal. No ductal dilation. Spleen: Normal. No splenomegaly. Adrenal glands: Normal. No mass. Kidneys and ureters: The kidneys are normal bilaterally, with no hydronephrosis or hydroureter. Stomach and bowel: Unremarkable. No obstruction. No mucosal thickening. Appendix: The appendix is not visualized. Intraperitoneal space: Unremarkable. No free air. No significant fluid collection. Vasculature: Unremarkable. No abdominal aortic aneurysm. Lymph nodes: Unremarkable. No enlarged lymph nodes. Urinary bladder: Unremarkable as visualized. Reproductive: Unremarkable as visualized. Bones/joints: Unremarkable. No acute fracture. Soft tissues: Unremarkable. IMPRESSION: 1. No renal or ureteral calculi. No hydronephrosis or hydroureter bilaterally. 2. Hepatic steatosis. Lab Data Lab results reviewed: Yes I reviewed the patient's lab results. Labs: Laboratory Tests Range/Units 05/15/22 05/15/22 05/15/22 08:11 08:43 08:43 WBC (4.4-10.8) 10^3/uL 11.98 H RBC (4.36-5.78) 10^6/uL 5.38 Hgb (13.5-17.5) g/dL 16.7 Hct (40.0-50.0) % 50.4 H MCV (80-95) fL 94 MCH (27.0-33.0) pg 31.0 MCHC (32.0-36.0) % 33.1 RDW (11.8-14.1) % 12.2 Plt Count (130-400) 10^3/uL 333 MPV (8.0-11.0) fL 9.2 Immature Gran % 0.5 Neutrophils % 72.6 Lymphocytes % 17.8 Monocytes % 7.3 Eosinophils % 1.2 Basophils % 0.6 Nucleated RBC % (0.0-0.3) % 0.0 Absolute Neutrophils (1.2-6.7) 10^3/uL 8.70 H Absolute Lymphocytes (1.2-3.4) 10^3/uL 2.13 Absolute Monocytes (0.1-0.8) 10^3/uL 0.87 H Absolute Eosinophils (0.0-0.7) 10^3/uL 0.14 Absolute Basophils (0.0-0.2) 10^3/uL 0.07 Sodium (136-145) mmol/L 137 Potassium (3.5-5.1) mmol/L 4.3 Chloride (98-107) mmol/L 100 Carbon Dioxide (21.0-32.0) mmol/L 32.7 H Anion Gap (3-11) mmol/L 4.3 BUN (7-18) mg/dL 12 Creatinine (0.70-1.30) mg/dL 1.3 Est GFR (CKD-EPI 2020) (mL/min/1.73m2) 65.69 Glucose (74-106) mg/dL 111 H Calcium (8.5-10.1) mg/dL 9.2 Total Bilirubin (0.2-1.0) mg/dL 1.1 H AST (15-37) U/L 20 ALT (16-63) U/L 39 Alkaline Phosphatase (46-116) U/L 61 Total Protein (6.4-8.2) g/dL 8.5 H Albumin (3.4-5.0) g/dL 3.8 Urine Color (Yellow) Yellow Urine Clarity (Clear) Clear Urine pH (5-8) 5.5 Ur Specific [place] (1.005-1.025) 1.010 Urine Protein (Negative) mg/dL Negative Urine Ketones (Negative) mg/dL Negative Urine Blood (Negative) Large H Urine Nitrite (Negative) Negative Urine Bilirubin (Negative) Negative Urine Urobilinogen (Up TO 0.2) EU/dL 0.2 Ur Leukocyte Esterase (Negative) Negative Urine RBC (0-2) HPF 5-10 H Urine WBC (0-5) HPF 3-5 Ur Epithelial Cells (Negative) HPF Rare Urine Crystals (Negative) HPF Negative Urine Bacteria (Negative) HPF Negative Urine Casts (Negative) LPF Negative Urine Mucus (Negative) Negative Ur Culture Indicated? No Urine Glucose (Negative) mg/dL Negative HPI General Mode of arrival: ambulatory . Date/Time Provider Initiated Documentation: 05/15/22 07:45 . Limitations to Documentation: no limitations . Information obtained by: patient . HPI Narrative: Pt is a 52yo M who presents to the ED w/ a c/o dysuria, difficulty starting urinary flow, dribbling and itching with urination for the past few days. He states he received a flu shot a few days ago and had some fever and body aches with that but states that has since resolved. He denies any recent fever, nausea, vomiting, abdominal pain, back pain, hematuria or penile discharge. Related Data Home Medications Medication Instructions Recorded Confirmed lisinopril 20 mg tablet 20 mg PO DAILY 09/20/18 05/15/22 acetaminophen 500 mg tablet 1,000 mg PO TID #90 tabs 09/21/21 05/15/22 tamsulosin 0.4 mg capsule (Flomax) 0.4 mg PO DAILY #30 caps 05/15/22 Previous Rx's Medication Instructions Recorded acetaminophen 500 mg tablet 1,000 mg PO TID #90 tabs 09/21/21 tamsulosin 0.4 mg capsule (Flomax) 0.4 mg PO DAILY #30 caps 05/15/22 Allergies Allergy/AdvReac Type Severity Reaction Status Date / Time No Known Allergies Allergy Verified 05/15/22 07:45 General Stated Complaint: Urinary SHERLY: 4 Review of Systems All systems reviewed & are unremarkable except as noted in HPI and below Constitutional Constitutional: Reports as per HPI, Denies chills and Denies fever(s) Eyes Eyes: Denies blurry vision ENT Ears, Nose, Mouth, and Throat: Denies dizziness, Denies sore throat and Denies throat swelling Cardiovascular Cardiovascular: Denies chest pain and Denies dyspnea Respiratory Respiratory: Denies cough and Denies dyspnea Gastrointestinal Gastrointestinal: Denies abdominal pain, Denies diarrhea and Denies vomiting Genitourinary Genitourinary: Denies hematuria, Reports difficulty urinating, Reports dysuria, Denies scrotal swelling, Reports urinary hesitancy and Reports urinary urgency Musculoskeletal Musculoskeletal: Denies back pain and Denies numbness Integumentary/Breasts Skin/Breast: Denies lesions and Denies rash Neurologic Neurologic: Denies dizziness, Denies localized weakness and Denies numbness Allergic/Immunologic Allergic/Immunologic: Denies throat swelling PFSH All Active Problems (Updated 05/15/22 @ 10:22 by Staci Mccoy DO) Urinary hesitancy (Acute) Medical History (Updated 05/15/22 @ 10:22 by Staci Mccoy DO) Dyslipidemia Hypertension Obesity Surgical History (Updated 05/15/22 @ 08:10 by Staci Mccoy DO) Tear of medial meniscus of left knee S/P Arthroscopy: 09/21/2021 Social History Smoking/Tobacco Use Status: Never Smoking risk assessment performed?: Yes Alcohol Intake: current Alcohol Intake frequency: a few times a week Alcohol type: beer Drug use: Never Substance use type: does not use Current gender identity: male Additional Social history: unable to assess [facility] Exam Const General: cooperative, healthy appearing and no acute distress HENMT Head: normal to inspection Face and sinus: normal facial exam Mouth: oral mucosae normal Eyes General: appearance normal, both eyes and all related structures Pupils: PERRL EOM: EOM intact bilaterally Neck Neck: normal visual inspection Lymphatic: no lymphadenopathy noted Chest Chest: normal inspection of the chest and no tenderness Resp Effort & Inspection: normal respiratory effort and able to speak in complete sentences Auscultation: clear to auscultation bilaterally Cardio Rate: regular rate Rhythm: regular rhythm GI Inspection: normal to inspection and obesity Palpation: soft, not firm, not rigid and nontender Auscultation: hypoactive bowel sounds Male General Exam: Yes normal external exam Penis: normal penis Scrotum: scrotum normal Back/Spine/Pelvis Back: no CVA tenderness Skin General skin exam: no rashes or lesions noted Neuro General: patient alert, patient awake and patient oriented x3 Cognition: normal cognition Speech: speech normal Motor: muscle tone normal throughout Sensory Exam: no sensory deficits noted Extrem General: normal to inspection and full ROM Psych Appearance: grossly normal Mental Status: mental status grossly normal Speech and Movement: speech and movement normal Affect: normal affect Course Vital Signs Vital signs: Vital Signs Temperature 97.7 F 05/15/22 07:41 Pulse 87 05/15/22 07:41 Respiratory Rate 16 05/15/22 07:41 Blood Pressure 158/103 H 05/15/22 07:41 Pulse Oximetry 97 05/15/22 07:41 Temperature 97.7 F 05/15/22 07:41 Temperature Source Temporal Artery Scan 05/15/22 07:41 Pulse 87 05/15/22 07:41 Respiratory Rate 16 05/15/22 07:41 Respiratory Effort Non-Labored 05/15/22 07:42 Blood Pressure 158/103 H 05/15/22 07:41 Blood Pressure Position Sitting 05/15/22 07:41 Pulse Oximetry 97 05/15/22 07:41 Oxygen Delivery Method Room Air 05/15/22 07:41 Oxygen Flow Rate 0 05/15/22 07:41 Pain Level 0 05/15/22 07:42 PAWSS Have you Been Recently Intoxicated or Drunk Within the Last 30 days?: No Have you Ever Experienced Previous Episodes of Alcohol Withdrawal?: No Have you ever Experienced Withdrawal Seizures?: No Have you ever Experienced Delirium Tremens(DT)s?: No Have you ever undergone Alcohol Rehabilitation Treatment (i.e, inpt ot outpatient treatment programs)?: No Have you ever Experienced Blackouts?: No Have you ever Combined Alcohol with other Downers within the last 90 days?: No Have you ever Combined Alcohol with any other Substance of Abuse during the last 90 days?: No Result: 0
[2022-05-15 08:22] LABS: Bilirubin Negative (Negative); Blood Large (Negative); Clarity Clear (Clear); Glucose Negative (Negative); Ketones Negative (Negative); Leukocyte Esterase Negative (Negative); Nitrite Negative (Negative); Urobilinogen 0.2 EU/dL (Up TO 0.2); pH 5.5 (5-8)
--- NOTE | 2022-05-15 08:30 | DI.CT_ITS ---
Exam(s) CT RENAL COLIC WO EXAM: CT RENAL COLIC WO CLINICAL HISTORY: dysuria, hematuria, r/o mass, stone. TECHNIQUE: Imaging Protocol: Axial computed tomography images with coronal and sagittal reformatted images were created and reviewed. CONTRAST MATERIAL: Noncontrast COMPARISON: No exams were available for comparison FINDINGS: ABDOMEN: Lung Bases: Normal where visualized. Liver: Enlarged. Moderate to severe hepatic steatosis. No measurable mass. Gallbladder and biliary tract: No radiodense calculus or dilation. Pancreas: Normal density, no calcifications or inflammatory process. Spleen: Normal. Kidneys: Normal size, contour and axis. No radiodense stones or obstructive uropathy. No masses seen. Adrenal glands: No masses seen. Abdominal Aorta: Abdominal portion non-dilated. PELVIS: Bladder: Symmetric distention, no gross wall thickening. No evidence of stones.No visible mass. Bowel: No obstruction or bowel wall thickening. Appendix normal. Reproductive: Unremarkable. Peritoneal cavity: No ascites, collection or mesenteric inflammatory response. Bones: Unremarkable for age.. IMPRESSION: Hepatomegaly and hepatic steatosis. No evidence of urinary tract calculi or hydronephrosis. No evid ence of mass. RADIATION DOSE DELIVERED: 1,471.53mGy.cm Total DLP DATA REPOSITORY: All CT scans at this facility are submitted to the National Radiology Data Registry (NRDR) Dose Index Registry (DIR) with the [employer] (A[employer]). RADIATION OPTIMIZATION: All CT scans at this facility use at least one of these dose optimization te chniques: automated exposure control; mA and/or kV adjustment per patient size (includes targeted exa ms where dose is matched to clinical indication); or iterative reconstruction.
[2022-05-15 08:34] LABS: Bacteria Negative HPF (Negative); C & S Indicated? No; Casts Negative LPF (Negative); Crystals Negative HPF (Negative); Epithelial Cells Rare HPF (Negative); Mucus Negative (Negative)
[2022-05-15 08:48] LABS: Abs Immature Grans 0.06 10^3/uL (0.0-0.06); Absolute Basophil Count 0.07 10^3/uL (0.0-0.2); Absolute Eosinophil Count 0.14 10^3/uL (0.0-0.7); Absolute Lymphocyte Count 2.13 10^3/uL (1.2-3.4); Absolute Monocyte Count 0.87 10^3/uL (0.1-0.8); Basophils % 0.6; Eosinophils % 1.2; HCT 50.4 % (40.0-50.0); HGB 16.7 g/dL (13.5-17.5); Immature Grans % 0.5; Lymphocytes % 17.8; MCHC 33.1 % (32.0-36.0); MCV 94 fL (80-95); MPV 9.2 fL (8.0-11.0); Monocytes % 7.3; Neutrophils % 72.6; Platelet Count 333 10^3/uL (130-400); RBC 5.38 10^6/uL (4.36-5.78); RDW 12.2 % (11.8-14.1); RDW-SD 42.4 fL; WBC 11.98 10^3/uL (4.4-10.8)
[2022-05-15 09:04] LABS: ALT 39 U/L (16-63); AST 20 U/L (15-37); Albumin 3.8 g/dL (3.4-5.0); Alkaline Phosphatase 61 U/L (46-116); Anion Gap 4.3 mmol/L (3-11); BUN 12 mg/dL (7-18); Bilirubin, Total 1.1 mg/dL (0.2-1.0); CO2 32.7 mmol/L (21.0-32.0); CREATININE 1.3 mg/dL (0.70-1.30); Calcium 9.2 mg/dL (8.5-10.1); Chloride 100 mmol/L (98-107); Estimated GFR 65.69 (mL/min/1.73m2); Glucose 111 mg/dL (74-106); Potassium 4.3 mmol/L (3.5-5.1); Sodium 137 mmol/L (136-145); Total Protein 8.5 g/dL (6.4-8.2)
--- NOTE | 2022-05-15 09:26 | DI.VRAD_ITS ---
PROCEDURE INFORMATION: Exam: CT Abdomen And Pelvis Without Contrast Exam date and time: 05/15/2022 9:05 AM Age: 52 years old Clinical indication: Patient HX: Dysuria, hematuria, R/O mass, stone TECHNIQUE: Imaging protocol: Computed tomography of the abdomen and pelvis without contrast. COMPARISON: MR LOWER JOINT LT WO 09/13/2021 1:48 PM FINDINGS: Liver: Diffuse hypodensity of the liver represents diffuse fatty infiltration. Gallbladder and bile ducts: Normal. No calcified stones. No ductal dilation. Pancreas: Normal. No ductal dilation. Spleen: Normal. No splenomegaly. Adrenal glands: Normal. No mass. Kidneys and ureters: The kidneys are normal bilaterally, with no hydronephrosis or hydroureter. Stomach and bowel: Unremarkable. No obstruction. No mucosal thickening. Appendix: The appendix is not visualized. Intraperitoneal space: Unremarkable. No free air. No significant fluid collection. Vasculature: Unremarkable. No abdominal aortic aneurysm. Lymph nodes: Unremarkable. No enlarged lymph nodes. Urinary bladder: Unremarkable as visualized. Reproductive: Unremarkable as visualized. Bones/joints: Unremarkable. No acute fracture. Soft tissues: Unremarkable. IMPRESSION: 1. No renal or ureteral calculi. No hydronephrosis or hydroureter bilaterally. 2. Hepatic steatosis. Dictated and Authenticated by: Teodoro Ruelas MD. Ordering:FANG Small MD
[2022-05-15] MEDS: Tamsulosin 0.4 MG CAPCR PO (10:22)
[2022-05-15 10:23] VITALS: BP 144/99; PULSE 82; RESP 16; TEMP 36.7; O2SAT 94
--- NOTE | 2022-05-15 11:34 | NUR.NOTE ---
Nursing Note: Referral faxed to [facility] Urology for BPH suspected in 2 to 4 weeks.
== END 2022-05-15 10:37 | disposition home or self-care (01) ==
PROVIDERS: Emergency Provider Physician Assistant; PCP Family Medicine
DX: R39.11 Hesitancy of micturition (principal); R30.9 Painful micturition, unspecified
CPT/HCPCS: 36415; 80053; 99284; 74176; 81003; 81015; 85025

== ENCOUNTER 2022-06-30 01:16 | Outpatient (CLI) | payer OTHER, SELFPAY ==
[2022-07-03 10:36] LABS: PSA, Screening 2.6 ng/mL (<=3.5)
== END 2022-06-30 01:17 | disposition home or self-care (01) ==
LOC: LBO 01:16
PROVIDERS: PCP Family Medicine; Visit Provider Nurse Practitioner Gerontology
DX: N13.8 Other obstructive and reflux uropathy (principal); N40.1 Benign prostatic hyperplasia with lower urinary tract symptoms; Z12.5 Encounter for screening for malignant neoplasm of prostate
CPT/HCPCS: 36415; 84153

== ENCOUNTER 2022-07-11 07:00 | Day surgery (SDC) | payer OTHER, SELFPAY ==
[2022-07-11 07:25] VITALS: BP 152/99; PULSE 65; RESP 18; TEMP 36.8; O2SAT 98
[2022-07-11] MEDS: Lactated Ringers 1,000 ML 80 ML IV (07:46)
--- NOTE | 2022-07-11 07:52 | W.ANESPRE ---
General Info Date of Service Date Performed: 07/11/22 Height: 5 ft 7 in Weight: 117.6 kg Body Mass Index (BMI): 40.6 Surgical Procedure: Operation Date: 07/11/22 08:40 Proposed Procedure Side Surgeon p Cystoscopy/Retrograde Bilateral Cedrick Streeter MD Meds Allergies and Home Medications Allergies Allergy/AdvReac Type Severity Reaction Status Date / Time No Known Allergies Allergy Verified 07/11/22 07:31 Home Medication Medication Instructions Recorded lisinopril 20 mg tablet 20 mg PO DAILY 09/20/18 acetaminophen 500 mg tablet 1,000 mg PO TID #90 tabs 09/21/21 tamsulosin 0.4 mg capsule (Flomax) 0.4 mg PO DAILY #90 caps 06/28/22 Current Visit Medications: Current Medications Generic Name Dose Route Start Last Admin Trade Name Freq PRN Reason Stop Dose Admin Ringer's Solution 1,000 mls @ 80 mls/hr 07/11/22 06:00 07/11/22 07:46 IV 08/09/22 23:59 80 mls/hr INFUSION MANINDER Administration Cefazolin Sodium/Dextrose 2 gm in 50 mls @ 100 mls/hr 07/11/22 06:00 Ancef Duplex IVPB 08/09/22 23:59 PREOP MANINDER IV Miscellaneous Supplies 1 each 07/11/22 06:00 Iv Access IV 08/09/22 23:59 DIRECTED MANINDER Sodium Chloride 0 ml 07/11/22 06:00 Normal Saline Flush 10 Ml Syr IV 08/09/22 23:59 PRN PRN Sodium Chloride 0 ml 07/11/22 06:00 Normal Saline 10 Ml Vial IJ 08/09/22 23:59 DIRECTED PRN Sterile Water 0 ml 07/11/22 06:00 Water,Injection,Sterile 10 Ml Vial IJ 08/09/22 23:59 DIRECTED PRN PFSH Active Problems Active Problems: Problem Status Onset Code Contusion of right knee S80.01XA BPH w urinary obs/LUTS N40.1, N13.8 Microscopic hematuria R31.29 Medical History Medical History Dyslipidemia Hypertension Obesity Surgical History Surgical History (Updated 07/11/22 @ 07:30 by June Gonzalez RN) Hx of vasectomy Tear of medial meniscus of left knee S/P Arthroscopy: 09/21/2021 Tobacco Smoking/Tobacco Use Status: Never Alcohol Alcohol Intake: current Alcohol intake frequency: a few times a week Alcohol type: beer Substance Use Substance use: Never Substance use type: does not use Vital Signs and Lab Results Vital Signs Most Recent Vital Signs in EMR: Most Recent Vital Signs Temp Pulse Resp BP Pulse Ox 36.8 C 65 18 152/99 H 98 07/11/22 07:25 07/11/22 07:25 07/11/22 07:25 07/11/22 07:25 07/11/22 07:25 Lab Results Blood Type / Crossmatch: No Data to Display Complete Blood Count: No Data to Display Complete Metabolic Panel: No Data to Display Liver Function Panel: No Data to Display Coagulation Panel: No Data to Display Cardiac Panel: No Data to Display Arterial Blood Gas: No Data to Display Venous Blood Gas: No Data to Display Pancreas Panel: No Data to Display Thyroid Panel: No Data to Display Infectious Disease: No Data to Display Blood Cultures: No Data to Display Toxicology Panel: No Data to Display Anesthesia Assessment and Plan Anesthesia History Personal History: No History of Anesthesia Complications Family History: No Family History of Anesthesia Complications Exercise Tolerance Exercise Tolerance: Metabolic Equivalents>4 Pertinent Negatives Pertinent Negatives: No Symptoms of GERD, No Major Cardiovascular Symptoms or Complaints, No Major Pulmonary Symptoms or Complaints and No History of CVA/TIA Cardiac & Pulmonary Exam Cardiac Exam: Normal S1/S2 Heart Sounds Pulmonary Exam: Clear Bilateral Breath Sounds Implantable Cardiac Device Does patient have a Pacemaker or an ICD?: No Airway Exam Known Difficult Airway: No Mallampati Class: 2 Mouth Opening: Normal (> 3cm) Thyromental Distance: Greater than 3 cm Neck Range of Motion: Full ROM Neck Circumference: Normal Teeth Condition: Normal Dentition ASA Classification ASA Score: ASA 3 Emergency Case?: No NPO Status NPO Status: NPO Clears >2 hours, Solids >8 hours Anesthesia Plan Resuscitation Status: Full Code Anesthesia Technique: General Anesthesia Airway Planned: Natural Airway Monitors Used: Standard Monitors
[2022-07-11 07:59] VITALS: BMI 40.6
--- NOTE | 2022-07-11 08:16 | W.PM.HP.N ---
Date of service: 07/11/22 Time of Service: 08:16 Assessment and Plan Assessment and plan (1) Microscopic hematuria: Status: Acute Assessment and plan: We will complete his hematuria workup with a cystoscopy and bilateral retrograde pyelogram. I will be prepared to biopsy or resect any abnormal tissue that we encounter. History of Present Illness History of Present Illness Chief Complaint: Microscopic hematuria Narrative: This is a 52-year-old gentleman who has a finding of microscopic hematuria. He has been evaluated with a noncontrast CT scan which demonstrated no renal masses and no kidney stones. He presents for cystoscopy with bilateral retrograde pyelogram to complete his hematuria work-up. He does have lower urinary tract symptoms which improved with the use of an alpha-stevan. He is not seeing any gross hematuria. Review of Systems Narrative: No fevers or chills No vision change or dysphasia No diabetes or thyroid No shortness of breath, cough or hemoptysis No chest pain or palpitations No nausea, vomiting, hepatitis, ulcers, jaundice, diarrhea or constipation No seizures, strokes or peripheral neuropathy No bleeding disorders or anemia No gout PFSH All Active Problems BPH w urinary obs/LUTS (Acute) Microscopic hematuria (Acute) Medical History Dyslipidemia Hypertension Obesity Surgical History (Updated 07/11/22 @ 07:30 by June Gonzalez RN) Hx of vasectomy Tear of medial meniscus of left knee S/P Arthroscopy: 09/21/2021 Social History Smoking/Tobacco Use Status: Never Smoking risk assessment performed?: Yes Alcohol Intake: current Alcohol Intake frequency: a few times a week Alcohol type: beer Drug use: Never Substance use type: does not use Current gender identity: male Do you feel safe at home: Yes Do you feel safe in your relationship?: Yes Meds Allergies and Home Medications Allergies Allergy/AdvReac Type Severity Reaction Status Date / Time No Known Allergies Allergy Verified 07/11/22 07:31 Home Medications Medication Instructions Recorded Confirmed Type lisinopril 20 mg tablet 20 mg PO DAILY 09/20/18 07/11/22 History acetaminophen 500 mg tablet 1,000 mg PO TID #90 tabs 09/21/21 07/11/22 Rx tamsulosin 0.4 mg capsule (Flomax) 0.4 mg PO DAILY #90 caps 06/28/22 07/11/22 Rx Exam Const General: cooperative Neck Neck: supple Resp Effort & Inspection: normal respiratory effort Auscultation: clear to auscultation bilaterally Cardio Rate: regular rate Rhythm: regular rhythm GI Palpation: soft and no masses Neuro General: patient alert, patient awake and patient oriented x3 Results Last Vital Signs Temp 36.8 C 07/11/22 07:25 Pulse 65 07/11/22 07:25 Resp 18 07/11/22 07:25 BP 152/99 H 07/11/22 07:25 Pulse Ox 98 07/11/22 07:25 Time Spent Time spent with Patient: <40 minutes Time was spent: other
[2022-07-11] MEDS: ceFAZolin 2 GM/50 ML BAG IVPB (08:45)
[2022-07-11] MEDS: Lidocaine 2% Jelly 6 ML SYR (08:55)
[2022-07-11] MEDS: Omnipaque 300 MG/ML 50 ML BTL (09:00)
--- NOTE | 2022-07-11 09:03 | DI.RAD_ITS ---
Exam(s) XR RETROGRADE IN OR EXAM: XR RETROGRADE IN OR CLINICAL HISTORY: retrograde in or. TECHNIQUE: 2D digital imaging was performed. COMPARISON: No exams were available for comparison FINDINGS: Fluoroscopy was provided during retrograde urologic study. See procedure report for details. Total fluoroscopy time 20.8 seconds IMPRESSION: Radiation exposure index/cumulative radiation dose: Velmanohemi= 13.58mGy DATA REPOSITORY: RADIATION DOSE DELIVERED:
--- NOTE | 2022-07-11 09:03 | W.PM.DSUDISC ---
Date of service: 07/11/22 Time of Service: 09:03 Discharge Plan Disposition Patient Disposition: Home Condition: Stable Discharge Details Reason For Visit: cystoscopy Attending Provider: Cedrick Streeter Primary Care Provider: Junaid Whitney Home Meds and New Rx's Prescriptions: No Action tamsulosin [Flomax] 0.4 mg capsule 0.4 mg PO DAILY Qty: 90 3RF lisinopril 20 mg Tablet 20 mg PO DAILY acetaminophen 500 mg tablet 1,000 mg PO TID Qty: 90 0RF Discharge Instructions Additional Instructions: followup 1 year for microscopic urinalysis Stand Alone Forms: Anesthesia Discharge InstTreva, Hilda Sellers (DSU) Activity:: Activity as Tolerated Shower/Bathe:: 24 hours Diet:: As Tolerated Discharge Orders Discharge Orders: Discharge Order (Routine); Ordered 07/11/22 Ordered By: Cedrick Streeter DS: Diagnosis Discharge Diagnosis (1) Microscopic hematuria: Status: Acute
--- NOTE | 2022-07-11 09:06 | W.PM.OP ---
Date of service: 07/11/22 Time of Service: 09:06 Operative Note Operative Note DATE OF PROCEDURE: 07/11/22 PRE-OP DIAGNOSIS: Microscopic hematuria POST-OP DIAGNOSIS: same PROCEDURE: cystoscopy with bilateral retrograde pyelogram SURGEON: Cedrick Streeter ANESTHESIA TYPE: General:No Airway Refer to Anesthesia Record ESTIMATED BLOOD LOSS: 5 PATHOLOGY: none sent COMPLICATIONS: None Patient was transported to: same day Patient's condition: stable Implants: none Indications: This is a 52-year-old gentleman who has a history of persistent microscopic hematuria. He had a normal-appearing noncontrast CT scan. He presents for cystoscopy and retrograde pyelogram to complete his hematuria work-up. Findings: no bladder or ureteral mass Procedure Description: The patient was brought to the operating room on 07/11/2022. He was given preoperative antibiotics. After successful induction of general anesthesia without intubation, he was placed in the dorsal lithotomy position. His genitalia was prepped and draped. 2% Xylocaine jelly was instilled into the urethra to act as a local anesthetic. A 22 Wolof rigid cystoscope was then passed through the urethra into the bladder. The urethra and bladder were inspected with a 30 degree lens. The pendulous, bulbar and membranous urethra appeared normal with no strictures. The prostatic urethra showed a significant elevated bladder neck but no active bleeding or papillary lesions along the prostatic mucosa. The bladder neck was then entered and the bladder mucosa was inspected. Both ureteral orifices appeared normal. No blood was seen coming from either orifice. Each orifice was cannulated with a 5 Wolof access catheter. Retrograde pyelogram was obtained by injecting Omnipaque through the access catheter under fluoroscopic guidance. No filling defects were seen along the course of the ureters or in the collecting system. Both sides drained promptly on a 5-minute drainage film. The remainder of the bladder was then inspected with a 70 degree lens. No papillary or nodular lesions were seen in the lumen of the bladder. The bladder was emptied and the scope was removed. Based on today's examination, I find no evidence of significant uropathology.
[2022-07-11 09:12] VITALS: BP 116/74; PULSE 85; RESP 16; TEMP 36.6; O2SAT 94
[2022-07-11 09:40] VITALS: BP 102/68; PULSE 63; RESP 16; TEMP 36.6; O2SAT 96
--- NOTE | 2022-07-11 10:09 | W.ANESPOSTOP ---
Postoperative Evaluation Date, Time and Location Date Performed: 07/11/22 Time Performed: 10:10 Patient Location: Day Surgery Unit Vital Signs Most Recent Imported Vital Signs: Most Recent Vital Signs Temp Pulse Resp BP Pulse Ox 36.6 C 63 16 102/68 96 07/11/22 09:40 07/11/22 09:40 07/11/22 09:40 07/11/22 09:40 07/11/22 09:40 Pain Score Most Recent Pain Score: Most Recent Pain Score Pain Level 0 07/11/22 09:40 Assessment Mental Status: Arousable with meaningful communication Airway and Respiratory Function: Patent airway with normal (patient baseline) respiratory exam Cardiovascular Function: Hemodynamically Stable Hydration Status: Adequately Hydrated Nausea & Vomiting: No Nausea or Vomiting Pain: Pt. Denies Any Pain Peripheral Nerve Block: Patient did not receive a nerve block Postoperative Comments:: Patient seen earlier today and doing very well. Denied questions and appropriate for discharge from anesthesia services.
== END 2022-07-11 09:55 | disposition home or self-care (01) ==
PROVIDERS: PCP Family Medicine; Visit Provider Urology
PROC: (CPT 74450; principal; 2022-07-11 08:30)
DX: R31.29 Other microscopic hematuria (principal); N40.1 Benign prostatic hyperplasia with lower urinary tract symptoms; N13.8 Other obstructive and reflux uropathy
CPT/HCPCS: 52005; 74420; J0690; J2405; J2704; Q9967

== ENCOUNTER 2023-09-12 11:32 | Outpatient (REF) | payer OTHER, SELFPAY ==
[2023-09-12 14:33] LABS: Abs Immature Grans 0.03 10^3/uL (0.0-0.06); Absolute Basophil Count 0.05 10^3/uL (0.0-0.2); Absolute Lymphocyte Count 2.22 10^3/uL (1.2-3.4); Absolute Monocyte Count 0.49 10^3/uL (0.1-0.8); Absolute Neutrophil Count 3.07 10^3/uL (1.2-6.7); Basophils % 0.8 %; Eosinophils % 1.7 %; HCT 51.5 % (40.0-50.0); HGB 17.3 g/dL (13.5-17.5); Immature Grans % 0.5 %; Lymphocytes % 37.2 %; MCHC 33.6 % (32.0-36.0); MCV 95 fL (80-95); MPV 10.6 fL (8.0-11.0); Monocytes % 8.2 %; Neutrophils % 51.6 %; Platelet Count 298 10^3/uL (130-400); RDW 12.8 % (11.8-14.1); RDW-SD 45.2 fL; WBC 5.96 10^3/uL (4.4-10.8)
[2023-09-12 15:27] LABS: ALT 73 U/L (16-63); AST 36 U/L (15-37); Albumin 4.3 g/dL (3.4-5.0); Alkaline Phosphatase 52 U/L (46-116); Anion Gap 6.9 mmol/L (3-11); BUN 16 mg/dL (7-18); Bilirubin, Total 1.4 mg/dL (0.2-1.0); CO2 32.1 mmol/L (21.0-32.0); CREATININE 1.1 mg/dL (0.70-1.30); Calcium 9.9 mg/dL (8.5-10.1); Calculated LDL 140 mg/dL (<100); Chloride 102 mmol/L (98-107); Cholesterol 224 mg/dL (<200); Estimated GFR 79.77 (mL/min/1.73m2); Glucose 105 mg/dL (74-106); HDL Cholesterol 48 mg/dL (40-60); Potassium 5.5 mmol/L (3.5-5.1); Sodium 141 mmol/L (136-145); Total Protein 7.6 g/dL (6.4-8.2); Triglyceride 184 mg/dL (<150)
== END 2023-09-12 11:33 | disposition home or self-care (01) ==
LOC: NCHCN 11:32
PROVIDERS: PCP Family Medicine; Visit Provider Family Medicine
DX: E78.5 Hyperlipidemia, unspecified (principal); Z00.00 Encounter for general adult medical examination without abnormal findings
CPT/HCPCS: 80053; 80061; 85025

== ENCOUNTER 2024-08-07 17:06 | Outpatient (REF) | payer OTHER, SELFPAY ==
[2024-08-07 15:57] LABS: ALT 58 U/L (16-63); AST 33 U/L (15-37); Albumin 4.2 g/dL (3.4-5.0); Alkaline Phosphatase 51 U/L (46-116); BUN 14 mg/dL (7-18); Bilirubin, Total 1.1 mg/dL (0.2-1.0); CREATININE 1.1 mg/dL (0.70-1.30); Calcium 9.8 mg/dL (8.5-10.1); Chloride 103 mmol/L (98-107); Estimated GFR 79.28 (mL/min/1.73m2); Glucose 89 mg/dL (74-106); Potassium 4.2 mmol/L (3.5-5.1); Sodium 141 mmol/L (136-145); Total Protein 7.4 g/dL (6.4-8.2)
[2024-08-07 18:23] LABS: Hemoglobin A1C 5.6 % (<5.7)
[2024-11-12 15:40] LABS: Bilirubin Negative (Negative); Blood Small (Negative); Clarity Clear (Clear); Glucose Negative (Negative); Ketones Negative (Negative); Leukocyte Esterase Negative (Negative); Nitrite Negative (Negative); Urobilinogen 0.2 mg/dL (Up to 0.2); pH 5.5 (5-8)
[2024-11-12 16:00] LABS: Bacteria Negative HPF (Negative); C & S Indicated? No; Casts Negative LPF (Negative); Crystals Negative HPF (Negative); Epithelial Cells Rare HPF (Negative); Mucus Negative (Negative); WBC Negative HPF (0-5)
== END 2024-08-07 17:07 | disposition home or self-care (01) ==
LOC: NCHCN 17:06
PROVIDERS: Nurse Practitioner Gerontology; PCP Family Medicine; Visit Provider Family Medicine
DX: Z00.00 Encounter for general adult medical examination without abnormal findings (principal)
CPT/HCPCS: 80053; 83036